=== PATIENT | female | born 1985 | race Caucasian/White ===

== ENCOUNTER → 2018-07-21 | Outpatient (REF) | payer OTHER | LOC: M SFHCLERA 11:19 | PROVIDERS: ATTEND Nurse Practitioner Family | DX: R35.0 Frequency of micturition (principal) ==

== ENCOUNTER → 2020-05-22 | Outpatient (CLI) | payer SELFPAY | LOC: M LABSMTC 12:40 | PROVIDERS: ATTEND Pediatrics | DX: Z20.822 Contact with and (suspected) exposure to COVID-19 (principal) ==